=== PATIENT | male | born 1990 | race Caucasian/White ===

== ENCOUNTER 2023-06-05 16:32 | Emergency (ER) | payer OTHER ==
[~2023-06-05] VITALS: Ht 167.6 cm; Wt 84.0 kg
[2023-06-05 16:42] VITALS: TEMP 96.7; O2SAT 98
[2023-06-05] MEDS ORDERED: IBUPROFEN 400MG TABLET PO ONE (17:00)
[2023-06-05 17:53] VITALS: BP 144/91; PULSE 99; RESP 18
== END 2023-06-05 18:55 ==
LOC: ER 16:32
DX: M54.9 Dorsalgia, unspecified (principal)
CPT/HCPCS: 72100; 99283